=== PATIENT | female | born 1975 | race Caucasian/White ===

== ENCOUNTER → 2017-09-26 | Outpatient (CLI) | payer OTHER ==
--- NOTE | 2017-09-26 15:57 | DIAGNOSTIC IMAGING REPORT ---
CERVICAL WITHOUT CONTRAST CLINICAL HISTORY: 42 years-old Female presenting with NECK PAIN, work injury, pain radiating down the left arm. TECHNIQUE: Multisequence, multiplanar MR imaging of the cervical spine was performed without the use of intravenous contrast. IV contrast: None. COMPARISON: Correlation made to plain radiographs of the left shoulder from 07/23/2017. FINDINGS: Localizer images: Unremarkable. Straightening of normal cervical lordosis. Vertebral bodies maintain normal height, alignment, and bone marrow signal intensity. Intervertebral disc desiccation noted from C2-3 through C5-6 without significant height loss. Small disc osteophyte complex at C5-6. This minimally effaces the anterior thecal sac and left lateral recess without apparent mass effect on the spinal cord or exiting nerve roots. No significant spinal canal narrowing. Mild uncovertebral hypertrophy evident on the left at C5-6 with resultant mild neural foraminal narrowing on the left at this level. No other sites of neural foraminal narrowing. There is suggestion of a thin linear fluid signal intensity within the cervical spinal cord evident on sagittal imaging that is not apparent on dedicated axial images. This may be related to truncation/[place] artifact. No commencing evidence of a syrinx. Cervical spinal cord otherwise maintains normal signal intensity and morphology. Paraspinal soft tissues within normal limits. IMPRESSION: 1. Focal degenerative change at C5-6 with small disc osteophyte complex and asymmetric left uncovertebral hypertrophy resulting in mild left neural foraminal narrowing. No other sites of significant degenerative disease. Electronically signed by: Brandt Samaniego M.D. 09/26/2017 3:56 PM Dictated Date/Time: 09/26/2017 3:49 PM
== END | disposition home or self-care (01) ==
LOC: C.MRIBC 14:59
PROVIDERS: ATTEND Physical Medicine & Rehabilitation Sports Medicine
DX: M54.2 Cervicalgia (principal)